=== PATIENT | female | born 1950 | race Caucasian/White ===

== ENCOUNTER 2017-08-23 07:18 | Day surgery (SDC) | payer MEDICARE, OTHER ==
[~2017-08-23 07:18] MED LIST: Lactated Ringers 1,000 ML IV SCH; Sodium Chloride 0.9% 10 ML Syringe FLUSH PRN
[2017-08-23] MEDS ORDERED: ePHEDrine 50 MG/ML SDV IV ONE (08:45)
[2017-08-23] MEDS ORDERED: Midazolam 1 MG/ML 2 ML SDV IV ONE (08:45)
[2017-08-23] MEDS ORDERED: Propofol 200 MG/20 ML SDV IV ONE (08:45)
[2017-08-23] MEDS ORDERED: Glycopyrrolate 0.2 MG/ML 5 ML MDV IV ONE (08:45)
--- NOTE | 2017-08-23 09:28 | PCM.OPNOTE ---
- General Post-Op/Procedure Note Date of Surgery/Procedure: 08/23/17 Operative Procedure(s): c scope with bx Findings: transverse colon polyps x2 Pre Op Diagnosis: rectal pain. lower abd pain Post-Op Diagnosis: transverse colon polyps x2 Anesthesia Technique: MAC Primary Surgeon: Hiro Wilson Anesthesia Provider: Michael Win Pathology: transverse colon polyp x2 Complications: None Condition: Good Free Text/Narrative:: see dictation
[2017-08-23 10:12] VITALS: BP 127/79
--- NOTE | 2017-08-23 17:42 | OR ---
DATE OF OPERATION: 08/23/2017 SURGEON: Hiro Wilson MD PREOPERATIVE DIAGNOSES: Rectal pain and lower abdominal pain. POSTOPERATIVE DIAGNOSIS: Transverse colon polyp x2. PROCEDURE PERFORMED: Colonoscopy with cold forceps biopsy. INDICATIONS FOR PROCEDURE: This is a 67-year-old white female who presented with the above-mentioned complaints. She was offered and accepted scope. DESCRIPTION OF OPERATION: After an excellent IV sedation was administered, digital rectal exam was performed. No marked abnormality was noted. Flexible colonoscope was inserted and advanced to the cecum without difficulty. The prep was excellent. The following findings were noted: 1. Ascending colon, unremarkable. 2. Transverse colon, at the proximal transverse colon, 2 small polyps biopsied with cold biopsy forceps and sent for permanent. 3. Descending colon, unremarkable. 4. Sigmoid and rectum, unremarkable. Colon was deflated. The scope was removed. The patient tolerated the procedure well, and was taken to recovery room in good condition. /[id number] BRADLEY/BENSON
== END 2017-08-23 11:00 | disposition home or self-care (01) ==
LOC: FB.SDS 07:18
PROVIDERS: ATTEND Surgery
DX: D12.3 Benign neoplasm of transverse colon (principal); F43.23 Adjustment disorder with mixed anxiety and depressed mood; I10 Essential (primary) hypertension; E66.9 Obesity, unspecified; Z88.8 Allergy status to other drugs, medicaments and biological substances; Z79.899 Other long term (current) drug therapy; Z68.30 Body mass index [BMI] 30.0-30.9, adult; Z90.49 Acquired absence of other specified parts of digestive tract; Z98.890 Other specified postprocedural states; Z90.710 Acquired absence of both cervix and uterus; F17.210 Nicotine dependence, cigarettes, uncomplicated
CPT/HCPCS: 00810; 45380; 88305; J2250; J2704; J7120

== ENCOUNTER 2022-09-23 07:19 | Day surgery (SDC) | payer MEDICARE, OTHER ==
[2022-09-23] MEDS ORDERED: Propofol 200 MG/20 ML SDV IV ONE (07:20)
[2022-09-23] MEDS ORDERED: Glycopyrrolate 0.2 MG/ML 5 ML MDV IV ONE (07:20)
[2022-09-23 09:34] VITALS: PULSE 78
[2022-09-23 10:42] VITALS: BP 140/80
== END 2022-09-23 10:19 | disposition home or self-care (01) ==
LOC: FB.SDS 07:19
PROVIDERS: ATTEND Surgery
DX: D12.2 Benign neoplasm of ascending colon (principal); F41.9 Anxiety disorder, unspecified; I10 Essential (primary) hypertension; E78.5 Hyperlipidemia, unspecified; E66.9 Obesity, unspecified; F32.A Depression, unspecified; Z86.010 Personal history of colon polyps; Z79.899 Other long term (current) drug therapy; Z88.2 Allergy status to sulfonamides; Z98.890 Other specified postprocedural states; Z90.49 Acquired absence of other specified parts of digestive tract; Z90.710 Acquired absence of both cervix and uterus; Z68.31 Body mass index [BMI] 31.0-31.9, adult; Z87.891 Personal history of nicotine dependence; Z88.8 Allergy status to other drugs, medicaments and biological substances
CPT/HCPCS: 00812-QZ; 88305; J2704; J3490; J7120